=== PATIENT | male | born 1970 | race Caucasian/White ===

== ENCOUNTER 2018-12-31 10:19 | Emergency (ER) | payer MEDICAID, SELFPAY ==
[2018-12-31 10:21] VITALS: BP 141/84; PULSE 68; RESP 12; TEMP 36.4; O2SAT 99; BMI 28.0
--- NOTE | 2018-12-31 10:33 | ED.VIS.GEN ---
History of Present Illness Chief Complaint: Laceration Informant: Patient Onset: Today Context: Sudden Onset Quality: Laceration secondary to blunt trauma Location: Laceration right ear Current Severity: Mild Maximum Severity: Moderate Worsened by: Complains of pain with movement or touch Relieved by: Nothing Associated Symptoms: Nothing Narrative: Patient states he slipped. He had the side of his car with the right side of his head. He sustained a laceration to his right ear. Tetanus imitation up-to-date, approximately 5 years ago. He denied loss conscious. Not amnestic. Denies neck pain. Denies paresthesia, anesthesia motors presently time of the injury. He denies cardiac respiratory symptoms. He is on no anticoagulant. He is on no medication. He is scheduled for his annual physician visit within the next month. Prior similar symptoms: No Recent Illness/Hospitalization: No - Past Medical History (1) No significant past medical history Status: Acute Past Medical History - Allergies and Home Meds Allergies/Adverse Reactions: Allergies No Known Allergies Allergy (Verified 12/31/18 10:20) Primary Care Physician: Yoandy Dewey MD [Primary Care Provider] - Past Medical History: None Surgical History: no surgical history Smoking Status: Never smoker Alcohol: Rare Drugs: None Review of Systems Eyes: Denies: Visual changes - bilaterally, Blurred Vision - bilaterally, Diplopia ENT: Reports: Right ear pain Gastrointestinal: Denies: Nausea Musculoskeletal: Denies: Myalgias, Arthralgias, Neck pain, Back pain, Swelling, Extremity Pain Skin: Reports: Wounds. Denies: Rash, Abscess, Abrasions Neurological: Denies: Headache, Weakness, Parasthesia, Numbness Hematologic: Denies: Easy bruising, Easy bleeding, Lymphadenopathy, -, - Allergy: Denies: Uticaria, Swelling of the mouth Physical Exam Vital Signs/Narrative: Vital Signs Temp Pulse Resp BP Pulse Ox 12/31/18 10:21 97.6 F L 68 12 141/84 H 99 Inital Vital Signs reviewed: Yes General: Well nourished, Well developed, No Acute Distress Head: Normocephalic, Trauma, Tenderness - Tenderness palpation right ear. Eyes: Perrl, EOMI. Negative for: Pale conjunctiva, Scleral icterus ENT: Moist mucous membranes, No rhinorrhea, TM's clear Neck: Supple, Nontender, No lymphadenopathy, No JVD Cardiovascular: Regular rate, Regular rhythm, No murmurs, Normal S1, Normal S2 Respiratory: No distress, CTA bilaterally, Chest nontender Skin: Normal color, Trauma Neurological: Alert, Oriented x3, Cranial nerves II-XII grossly intact, Normal Strength, Normal Sensation, - - GCS 15 Psychological: Normal affect, Normal Mood Procedures - Lacerations No standard instances Length: 24 in Depth: Sub Q Shape: Flap Prep: Sterile Conditions, Shjanneth-Clens Laceration repair: - - Field block using 1% lidocaine, total of 3 cc Irrigated (ml): 5 Number of Sutures/Ann: 5 Suture Information: Ethilon, 6-0 ED Disposition - Plan for ED Patient: Disposition: Home or Assisted Living Diagnosis: Laceration of ear Instructions: ED Laceration Facial Sutr Tape Referrals: Yoandy Dewey MD [Primary Care Provider] - 7 Days for suture removal
[2018-12-31 11:51] VITALS: PULSE 61; RESP 17; O2SAT 98
== END 2018-12-31 11:52 | disposition home or self-care (01) ==
PROVIDERS: Emergency Provider Emergency Medicine; Family Provider Family Medicine; PCP Family Medicine
DX: S01.311A Laceration without foreign body of right ear, initial encounter (principal); W01.118A Fall on same level from slipping, tripping and stumbling with subsequent striking against other sharp object, initial encounter; Y93.89 Activity, other specified; Y92.89 Other specified places as the place of occurrence of the external cause; Y99.8 Other external cause status
CPT/HCPCS: 12017; 99284

== ENCOUNTER 2024-09-11 10:48 | Emergency (ER) | payer MEDICAID, SELFPAY ==
[2024-09-11 10:49] VITALS: BP 151/95; PULSE 67; RESP 18; TEMP 36.4; O2SAT 100; BMI 29.1
[2024-09-11] MEDS: Acetaminophen 500 MG Tablet 1000 MG PO (11:25)
--- NOTE | 2024-09-11 11:25 | EX.ED.DYSGE1 ---
HPI <BJ Kenney - Last Filed: 09/11/24 12:27> History of Present Illness Chief Complaint: Fall Narrative Narrative: 54-year-old male with no significant medical history presents to the [facility] apartment after mechanical fall that occurred last evening. Patient states this happened approximate 6:30 PM when he slipped on the ice landing on his left side. Patient states that his left arm broke his fall however did go into his left ribs. Pay states the ribs are hurting more today and is here for evaluation. Pain is worse with movement as well as rotation and deep inspiration. Pain is sharp at times. PFSH <BJ Kenney - Last Filed: 09/11/24 12:27> [facility] Medical History no medical history Home Medications ?Medication ?Instructions ?Recorded ?Last Taken ?Type hydrocodone-acetaminophen 5-325mg 1 tab PO Q6H PRN PRN Pain 3 days 09/11/24 Unknown Rx 5mg-325mg #10 TABLETS ibuprofen 600 mg tablet 600 mg PO Q6H PRN PRN pain #20 09/11/24 Unknown Rx TABLETS Allergy/AdvReac Type Severity Reaction Status Date / Time No Known Allergies Allergy Verified 09/11/24 10:51 Social History Smoking Status: Never smoker ROS <BJ Kenney - Last Filed: 09/11/24 12:27> ROS ED ROS Narrative Constitutional: Negative for fever, chills, weight loss, weakness Eyes: Negative for vision loss, vision change, double vision ENT: Negative for any sore throat, ear pain, congestion Cardiovascular: Negative for any chest pain, tightness, palpitations Respiratory: Negative for any cough, sputum production, hemoptysis, dyspnea, dyspnea on exertion, orthopnea Gastrointestinal: Negative for any abdominal pain, nausea, vomiting, diarrhea, constipation, blood in stool, blood in vomit : Negative for any urinary frequency, dysuria, retention, blood in urine Muscle skeletal: Negative for any neck pain, back pain. Positive for left-sided chest wall pain Neurological: Negative for any headache, syncope, dizziness Skin: Negative for any rashes, itching, abrasions, lacerations Psychiatric: Negative for any depression, anxiety, stress, suicidal ideation, homicidal ideation Hematologic: Negative for any excessive bruising, easy bleeding EXAM <BJ Kenney - Last Filed: 09/11/24 12:27> Physical Exam Narrative Exam Narrative: Vital signs reviewed. HEET: Head normocephalic atraumatic, TMs clear bilaterally. Posterior pharynx is clear, moist mucous membranes. Nares clear bilaterally. Neck: Supple with no lymphadenopathy or tenderness. No signs of meningismus. Cardiac: Regular rate and rhythm no murmurs gallops or rubs, equal peripheral pulses bilaterally. Respiratory: Lungs clear to auscultation bilaterally. Chest tenderness to the left lateral ribs, equal breath sounds. There is no crepitus noted. There is no signs of ecchymosis or edema. Abdomen: Soft, nontender, nondistended. No abdominal bruit or pulsatile masses. No hepatosplenomegaly Extremities: No peripheral edema, no signs of gross trauma or deformity. Active full range of motion of all extremities. Neuro: Cranial nerves II through XII intact, no focal neurological deficits. Skin: Clean dry and intact with no rash, purpura, petechiae, vesicles or pustules. Backs/flank: No CVA tenderness, no midline spinal tenderness, no deformity. Psych: Normal mood and affect. No SI, HI or acute psychosis. Const Vital Signs: 09/11/24 10:49 09/11/24 11:06 Temperature 97.5 F L Temperature Source Oral Pulse Rate 67 Respiratory Rate 18 Respiratory Effort Normal Non-Labored Respiratory Depth Normal Respiratory Pattern Normal Blood Pressure 151/95 H Blood Pressure Mean 113 Pulse Ox 100 Oxygen Delivery Method Room Air Room Air <Dr. Nathanael Osborne DO - Last Filed: 09/11/24 17:43> Physical Exam Const Vital Signs: 09/11/24 10:49 09/11/24 11:06 Temperature 97.5 F L Temperature Source Oral Pulse Rate 67 Respiratory Rate 18 Respiratory Effort Normal Non-Labored Respiratory Depth Normal Respiratory Pattern Normal Blood Pressure 151/95 H Blood Pressure Mean 113 Pulse Ox 100 Oxygen Delivery Method Room Air Room Air [facility] <ALVARO KenneyC - Last Filed: 09/11/24 12:27> [facility] Radiography Diagnostic Testing: Clinical Impression(s) from Imaging Studies Ribs w/Chest X-Ray 09/11/24 11:28 IMPRESSION: There is an apparent fracture of the anterolateral aspect of the left seventh rib and there is an apparent fracture of the anterolateral aspect of the left eighth rib. Otherwise, no acute findings. Electronically Signed: Soolmon Porter DO at 12:10 EST , Treatment and Re-Evaluation :: Differential diagnosis includes however is not limited to: Rib fracture, pneumothorax, hemothorax, rib contusion Patient appears generally well, vital signs are stable, patient is nontoxic-appearing. Presenting to the emergency department after falling on his left side injuring his left ribs. Rib series x-ray will be ordered, patient was given oral Tylenol. All radiologic examinations were read, reviewed by the emergency department attending. From these reads, a plan of care will be put in place. Patient be given instruction about a incentive spirometer. Chest x-ray rib series shows apparent fracture of the anterior lateral aspect of the left seventh rib there is an apparent fracture of the anterior lateral aspect of the left eighth rib. No other acute findings, no pneumothorax. At this time, I did speak with the patient, giving breathing exercises, as well as things to watch out for such as worsening cough fever chills, as he is higher risk for pneumonia. Patient will continue to follow-up outpatient. He will be given a prescription for [place] as well as for ibuprofen. Instructed return for any worsening symptoms, stable for discharge. <Dr. Nathanael Osborne, - Last Filed: 09/11/24 17:43> [facility] Radiography Diagnostic Testing: Clinical Impression(s) from Imaging Studies Ribs w/Chest X-Ray 09/11/24 11:28 IMPRESSION: There is an apparent fracture of the anterolateral aspect of the left seventh rib and there is an apparent fracture of the anterolateral aspect of the left eighth rib. Otherwise, no acute findings. Electronically Signed: Solomon Porter DO at 12:10 EST , Treatment and Re-Evaluation :: Differential diagnosis includes however is not limited to: Rib fracture, pneumothorax, hemothorax, rib contusion Patient appears generally well, vital signs are stable, patient is nontoxic-appearing. Presenting to the emergency department after falling on his left side injuring his left ribs. Rib series x-ray will be ordered, patient was given oral Tylenol. All radiologic examinations were read, reviewed by the emergency department attending. From these reads, a plan of care will be put in place. Patient be given instruction about a incentive spirometer. Chest x-ray rib series shows apparent fracture of the anterior lateral aspect of the left seventh rib there is an apparent fracture of the anterior lateral aspect of the left eighth rib. No other acute findings, no pneumothorax. At this time, I did speak with the patient, giving breathing exercises, as well as things to watch out for such as worsening cough fever chills, as he is higher risk for pneumonia. Patient will continue to follow-up outpatient. He will be given a prescription for [place] as well as for ibuprofen. Instructed return for any worsening symptoms, stable for discharge. ED attending note: I evaluated the patient in conjunction with the EZ. I agree with his/her statements and above findings. I have personally performed a face to face assessment of the patient and have reviewed the EZ Note. I performed a substantive portion of the visit including all aspects of the following. I personally saw the patient performed chart review, physical exam, reviewed labs, imaging (if obtained), and formulated a treatment and management plan. 54-year-old male presents mechanical fall from standing. Denies syncope or head trauma. Primary Survey Airway: Intact Breathing: Bilateral breath sounds Circulation: Palpable bilateral femorals, Palpable bilateral radial, Palpable bilateral DP and Palpable bilateral PT Disability / Spine precautions GCS Score: Eye Openin Verbal Response: 5 Motor Response: 6 Secondary Survey Constitutional: Please see MDM Head: Atraumatic, Midface stable, NO jaw malocclusion, No Cephalohematoma, and No Lacerations noted Eye: Pupils equal round and reactive to light, Extraocular muscles intact and No periorbital ecchymosis or stepoff, no evidence of entrapment ENT: Oropharynx clear, no lacerations, no hemotympanum, no raccoon eyes or escobar sign Cervical spine / Neck: No cervical spine bony tenderness, crepitance, or stepoff deformity Trachea midline Lungs: Clear to auscultation, No asymmetric rise and No crepitus, no flail chest, TTP over left chest. Cardiac: Regular rate and rhythm and No murmurs Abdomen: Soft, Nontender and No rebound Pelvis: Pelvis stable to compression : No evidence of genital injury Back: No midline bony tenderness to thoracic/lumbar/sacral spines Neuro: At baseline, intact strength and sensation in bilateral upper and lower extremities. 2+ patellar reflexes bilaterally. Extremities: NO gross Deformities Psych: Normal affect Nursing triage notes reviewed, Vital signs reviewed We obtained an x-ray of the chest and ribs. X-ray was read reviewed personally myself and showed no evidence of obvious pneumothorax or pulmonary contusion but did show evidence of possible seventh rib fracture. Radiologist noted left seventh and eighth rib fractures. While the patient multiple rib fractures he did not meet criteria for trauma transfer at this time. Will give incentive spirometer and oral pain medication for home-going. His tertiary trauma exam did not reveal additional injuries including to the head, cervical thoracic lumbar spine or extremities. The patient is appropriate for discharge home. This note was generated with [employer] dictation software. It may contain incorrect words, spelling, and punctuation that were not noted in review of the chart prior to signing. Discharge Plan Triage Chief Complaint: Fall ED Midlevel Provider: Dexter Gonzales ED Provider: Nathanael Osborne Dx/Rx/DC Orders Clinical Impression: Fall, Closed rib fracture Instructions: Rib Fracture (Broken Rib), ED Rib Fracture Prescriptions: New hydrocodone-acetaminophen 5-325 mg tablet 1 tab PO Q6H PRN PRN (Reason: Pain) 3 Days Qty: 10 0RF ibuprofen 600 mg tablet 600 mg PO Q6H PRN PRN (Reason: pain) Qty: 20 0RF Primary Care Provider: Yoandy Dewey Referrals: Yonady Dewey MD [Primary Care Provider] - Activity Restrictions/Additional Instructions: Use your incentive spirometer, you want to use the 6-10 times every hour while awake and resting. This allows your lungs to fully inflated. Keep a look out on for fevers chills, worsening cough. Take the pain medicine as needed for extreme pain, throughout the day if you need pain medicine use the ibuprofen. Print Language: Wolof Disposition Disposition: Home, Self Care Discharge Date/Time: 09/11/24 12:35
--- NOTE | 2024-09-11 11:28 | RAD_ITS ---
EXAM: XR LEFT RIBS AND AP CHEST, 3 OR MORE VIEWS CLINICAL INDICATION: fall pain. TECHNIQUE: Frontal and oblique views of the left ribs and frontal view of the chest. COMPARISON: CT abdomen and pelvis, 08/15/2015. FINDINGS: LUNGS AND PLEURAL SPACES: No significant abnormality. No consolidation or edema. No pneumothorax. No effusion. HEART: No significant abnormality. Cardiac silhouette not enlarged. MEDIASTINUM: Central airways and mediastinal contour are unremarkable. BONES/JOINTS: There is an apparent fracture of the anterolateral aspect of the left seventh rib and there is an apparent fracture of the anterolateral aspect of the left eighth rib. RAD/Ribs Uni Min 3V w/PA Chest IMPRESSION: There is an apparent fracture of the anterolateral aspect of the left seventh rib and there is an apparent fracture of the anterolateral aspect of the left eighth rib. Otherwise, no acute findings. Electronically Signed: Solomon Porter DO at 12:10 EST ,
== END 2024-09-11 12:35 | disposition home or self-care (01) ==
PROVIDERS: Emergency Provider Emergency Medicine; PCP Family Medicine; Visit Provider Emergency Medicine
DX: S22.42XA Multiple fractures of ribs, left side, initial encounter for closed fracture (principal); W00.9XXA Unspecified fall due to ice and snow, initial encounter
CPT/HCPCS: 71101; 99282